=== PATIENT | male | born 1950 | race Caucasian/White ===

== ENCOUNTER 2017-01-03 00:18 | Observation (INO) | payer MEDICARE, OTHER ==
[~2017-01-03] VITALS: Ht 170.2 cm; Wt 94.6 kg
[2017-01-03] VITALS (14 sets, daily range): BP systolic 89–131; BP diastolic 68–88; PULSE 40–76; RESP 11–16; O2SAT 96–100
[~2017-01-03 00:18] MED LIST: AMIO200T PO; AZEL23SP NS; BACL10TA PO; BUPR300T52 PO; ENAL20TA PO; IBUP200C PO; LUBI24CA4 PO; METO50TA7 PO; OXYC5TAB72 PO; OXYM10TA10 PO; PREG300C PO; RIVA20TA PO; SIMV20TA4 PO
[2017-01-03] MEDS ORDERED: Methohexital 10 mg/mL 50 mL Inj IV PRN (09:20)
[2017-01-03] MEDS ORDERED: Methohexital 10 mg/mL 50 mL Inj ONE (10:02)
--- NOTE | 2017-01-03 10:33 | PROCED ---
[address] [address] PROCEDURE NOTE PATIENT: PILAR DODGE : 1950 MR#: [id number] ADMIT: 01/03/2017 JOB ID: [id number] DATE OF SERVICE: 01/03/2017 POSTOPERATIVE DIAGNOSIS(ES): PREOPERATIVE DIAGNOSIS(ES): SURGEON: Esther Kim MD CHIEF COMPLAINT: Shortness of breath and palpitation. PROCEDURE PERFORMED: Direct-current cardioversion. METHOD: Following informed consent, patient was sedated with 30 mg of Brevital and 1 mg of Versed. Then, 200 joules synchronized cardioversion was delivered. Normal sinus rhythm was restored. The patient is bradycardic, but asymptomatic after delivery at a rate of 39 beats per minute. PLAN: Pt is bradycardic. Recommend hospitalization for rate management MTDD
[2017-01-03] MEDS ORDERED: HYDROcodone-APAP 5-325 mg Tablet PO PRN (15:10)
[2017-01-03] MEDS ORDERED: Ondansetron 2 mg/mL 2 mL Inj IVPUSH PRN ×2 (15:10→17:35)
[2017-01-03] MEDS ORDERED: 0.9% Sodium Chloride 1,000 ML IV ONE (15:10)
[2017-01-03] MEDS ORDERED: Alum-Mag Hydrox-Simeth 30 mL Suspension PO PRN (17:35)
[2017-01-03] MEDS ORDERED: Polyethylene Glycol (PEG) 17 Gm Powder PO PRN (17:35)
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
[2017-01-03] MEDS: OXYMORPHONE 10 MG PO SCH (23:30)
[2017-01-04 00:05] VITALS: RESP 14; O2SAT 95
[2017-01-04 03:10] LABS: BASOPHILS % (AUTO) 0.4 % (0-3); EOSINOPHILS % (AUTO) 4.2 % (0-5); MONOCYTES % (AUTO) 11.5 % (4-12); Mean Corpuscular Hemoglobin 30.9 pg (27.0-35.0); Mean Corpuscular Volume 94.4 fL (81-100); NEUTROPHILS % (AUTO) 58.8 % (40-74); Platelet Count 251 bil/L (150-400)
[2017-01-04 03:28] VITALS: BP 98/64; PULSE 45; RESP 16; O2SAT 95
[2017-01-04 04:23] VITALS: RESP 16; O2SAT 95
[2017-01-04] MEDS: OXYMORPHONE 10 MG PO SCH ×3 (06:00→16:11)
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
[2017-01-04 08:03] VITALS: BP 116/72; PULSE 44; RESP 18; O2SAT 97
[2017-01-04] MEDS ORDERED: buPROPion XL 300 mg ER24 Tablet PO SCH (08:30)
[2017-01-04 10:39] VITALS: PULSE 41
--- NOTE | 2017-01-04 10:50 | PCM.PNCARD ---
Subjective Date of service January 04, 2017 Chief Complaint AFIB Constitutional: Denies: Chills, Fever ENT: Denies: Ear Pain Eyes: Denies: Blurred Vision Cardiovascular: Denies: Chest Pain, Irregular Heart Rate, Palpitations Respiratory: Denies: Cough, Cough with bloody sputum Gastrointestinal: Denies: Abdominal Pain, Black tarry stools, Blood in stool ( red) Genitourinary: Denies: Dysuria, Hematuria, No burning or pain with urination Musculoskeletal: Denies: Ankle Pain, Back Pain Skin: Denies: Blisters Neurological: Denies: Confusion, Dizziness Endocrine: Reports: Blood Glucose Review Exam Vital Signs Vital Sign - Last Date Time Temp Pulse Resp B/P Pulse Ox O2 Delivery O2 Flow Rate FiO2 01/04/17 10:39 41 01/04/17 08:03 36.5 18 116/72 97 Room Air Intake and Output 01/03/17 01/03/17 01/04/17 Cumulative From/Thru 15:00 23:00 07:00 01/03/17 09:00 - 01/04/17 05:08 Intake Total 740 ml 800 ml 300 ml 1840 ml Output Total 300 ml 300 ml Balance 740 ml 500 ml 300 ml 1540 ml Intake Oral 240 ml 800 ml 300 ml 1340 ml IV Total 500 ml 500 ml Output Urine Total 300 ml 300 ml # Voids 4 4 # Bowel Movements 0 0 General: Pleasant Cooperative Skin: Warm & dry to touch Neck: No JVD Chest: Clear auscultation w/o rales/wheeze Cardiac: Normal non-displaced apical impulse Regular rhythm Pulses: Pulses full/equal all extremities Abdomen: Soft, non-distended, non-tender Extremities: Warm w/o deformities,erythema noted Neurological: Alert & oriented No gross motor or sensory deficits Psychological: Memory grossly intact Lab and Diagnostics Result Diagram: 01/04/17 0250 01/04/17 0250 Assessment & Plan Problems: (1) Paroxysmal atrial fibrillation Plan: Patient has remained in sinus bradycardia since [facility]. He is feeling better even in the presence of sinus bradycardia. He has hx of symptomatic afib. For now he may go home and f/u with Dr. Kim in [address] Kim's request. Please call our office to make that arrangement. Discharge meds: Amiodarone 100 mg once a day. Lisnopril 5 mg once a day - needs Rx for at least 2 months. Xarelto 20 mg once a day NO metoprolol Status: Chronic ICD Code: I48.0 (2) Bradycardia Status: Acute ICD Code: R00.1 (3) Hypotension Status: Acute ICD Code: I95.9 Pain Evaluation: Adequate Pain Control VTE Prophylaxis: Other (patient is on Xarelto) Resuscitation Status: CPR: Attempt Resuscitation Time spent 20 minutes Arnold Calderon MD January 04, 2017 10:50
[2017-01-04 13:27] VITALS: BP 118/71; PULSE 45; RESP 18; O2SAT 97
--- NOTE | 2017-01-04 16:07 | PCM.DIMED ---
Discharge Instructions Date of Service January 04, 2017 Dates of Hospitalization January 03, 2017 at 13:45 Discharge Diagnosis Discharge Diagnosis Bradycardia and Hypotension Diet Heart Healthy Activity No restrictions (Patient may resume usual activities gradually as tolerated.) Call your provider Fever or Chills, Shortness of breath, Bleeding, Chest pain, Vomitting, Excessive diarrhea, Weakness (unilateral) Patient Instructions Follow-up with PCP in: 1 week (Follow up with Dr. Fran Acosta in 1-2 weeks) Provider: Esther Kim MD Follow-up in: 1 week Lewis Calix MD January 04, 2017 16:07
[2017-01-04] MEDS ORDERED: LISI-571 PO ×2 (16:27→16:34)
[2017-01-04] MEDS ORDERED: RIVA10TA PO (16:33)
[2017-01-04] MEDS ORDERED: AMIO200T PO (16:33)
--- NOTE | 2017-01-04 23:58 | PCM.DC.MED ---
Discharge Summary Date of Service January 04, 2017 Dates of Hospitalization Date of Hospital Admission January 03, 2017 at 13:45 Date of Discharge: January 04, 2017 Providers: Admitting Physician: Esther Kim MD Primary Care Physician: Other,Physician Attending Physician: Esther Kim MD Diagnosis at Time of Discharge Diagnosis at Time of Discharge Bradycardia and Hypotension Consultations Dr. Kim of cardiology Brief History Patient is a very pleasant 66-year-old white male with history of paroxysmal atrial fibrillation diagnosed in approximately 2013. Patient had prior DC cardioversion 03/11/2014 at [facility] with Dr. Kendrick. Patient subsequently had a PVI with Dr. Hoang in August 2014. Before ablation he was placed on amiodarone for approximately 1 month and was a normal sinus rhythm when he went in for ablation. Patient stated that he was kept on amiodarone postprocedure. However, about 1 month afterwards he noted worsening fatigue, and was found to be back in atrial fibrillation. It is not exactly clear when he went back in nature fibrillation. He states despite amiodarone he would feel himself go back into atrial fibrillation when playing competitive, and getting nervous during competitive pool tournaments. She had several EKGs in the past in May 2015 he had this sinus bradycardia, in June 2015 he had sinus bradycardia and in September 2015 in sinus bradycardia. In terms of stroke prevention his chads 2 Vascor was 2 with points for age and hypertension. He was placed on the Xarelto and was tolerating it well. Had a stress test 2013 at [facility] [place] It was a pharmacological stress test with MPI. At that time he was in atrial fibrillation with a controlled rate. There is a small mild basal inferior fixed perfusion defect, which was attributed to attenuation artifact. Gated portion of the study called the ejection fraction of 49% most recent echo performed by Dr. Kim at [facility] 05/27/2016 showed mild LAE, otherwise normal chamber size, normal ejection fraction. Patient also suffers from obstructive sleep apnea and is faithful on CPAP and has a new machine and his sleep is better. Patient was seen by Dr. Kim and was been set up for a DC cardioversion today. After the procedure patient was found to be hypotensive and bradycardic. Patient was therefore brought in under observation to the hospital service for further evaluation and treatment. Hospital Course The patient is a pleasant 66-year-old white male disabled from the previous work -related accident causing a T6 burst fracture of his thoracic spine. Patient has a history of paroxysmal atrial fibrillation. Patient has undergone DC cardioversion in February 2014 and ablation therapy in August 2014. Patient continues to have problem with paroxysmal atrial fibrillation and was brought in for elective cardioversion today by Dr. Kim. Patient was successfully cardioverted to a sinus rhythm however has stayed in sinus bradycardia and has been hypotensive. The patient therefore was brought in under observation to the hospital service for further evaluation and treatment. # Paroxysmal atrial fibrillation present at the time of admission and ongoing. - Status post DC cardioversion today - Sinus bradycardia with the time of admission and an ongoing continue close observation with telemetry - Continue Xarelto # Hypotension - IV fluids - Patient is eating and drinking well and blood pressure is improving - Continue close observation overnight # History of hypertension - Not a problem at this time.- Dr. Kim would like to hold the patient's metoprolol and lisinopril # History of pulmonary emboli after T6 burst fracture - Patient is on Xarelto which we will do for prophylaxis. Physician: Patient has remained stable and asymptomatic overnight with sinus bradycardia discharge home today. Exam Vital Signs (Last) Date Time Temp Pulse Resp B/P Pulse Ox O2 Delivery O2 Flow Rate FiO2 01/04/17 13:27 36.6 45 18 118/71 97 Room Air Exam General: Patient is in no apparent distress and is resting comfortably supine in bed. HEENT: Head is atraumatic and normocephalic. Eyes: Pupils are equally round and reactive to light and accommodation. Extraocular muscles are intact. Sclera are white, anicteric. Subconjunctival mucosa is pink. Ears and nose are unremarkable. Oropharynx: There is no mucosal lesions, there is no thrush, there is no pharyngitis. Neck: Is supple, there are no nodes, or masses or tenderness. Chest: Is clear to auscultation and percussion. There are no rales, rhonchi, wheezes or rubs. Heart: Rate is bradycardic, rhythm is regular. There is no appreciable murmur, rub or gallop. Abdomen: Good bowel sounds are present. Abdomen is soft, nontender, no organomegaly or masses were appreciated. Extremities: Are symmetrical and well perfused. There is no edema, there is no cellulitis, no rash. Neurologic: There are no focal neurological deficits. Cranial nerves II through XII are intact. There are no sensory or motor deficits. Psychiatric: Patients mood is calm and he shows no sign of agitation. Genital: Deferred Rectal: Deferred Test 01/04/17 02:50 White Blood Count 8.2th/mm3 (3.8-10.1) Red Blood Count 4.30mil/mm3 (4.40-5.80) Hemoglobin 13.3g/dL (13.8-17.2) Hematocrit 40.6% (41.0-50.0) Mean Corpuscular Volume 94.4fL (81-100) Mean Corpuscular Hemoglobin 30.9pg (27.0-35.0) Mean Corpuscular Hemoglobin Concent 32.8% (32.0-37.0) Red Cell Distribution Width 13.4% (12.3-15.4) Platelet Count 251bil/L (150-400) Neutrophils (%) (Auto) 58.8% (40-74) Lymphocytes (%) (Auto) 24.7% (14-46) Monocytes (%) (Auto) 11.5% (4-12) Eosinophils (%) (Auto) 4.2% (0-5) Basophils (%) (Auto) 0.4% (0-3) Sodium Level 142mEq/L (134-144) Potassium Level 4.4mEq/L (3.5-5.2) Chloride Level 102mEq/L (97-108) Carbon Dioxide Level 27mmol/L (18-29) Blood Urea Nitrogen 15mg/dL (8-27) Creatinine 0.85mg/dL (0.76-1.27) Estimat Glomerular Filtration Rate 96mL/min (>59) Glucose Level 86mg/dL (60-99) Calcium Level 8.6mg/dL (8.5-10.1) Magnesium Level 2.0mg/dL (1.6-2.6) Total Bilirubin 0.4mg/dL (0.0-1.2) Aspartate Amino Transf (AST/SGOT) 20U/L (0-50) Alanine Aminotransferase (ALT/SGPT) 23U/L (0-44) Alkaline Phosphatase 58U/L (25-160) Total Protein 5.8g/dL (6.4-8.4) Albumin 3.4g/dL (3.4-5.0) Discharge Medications Discharge Medications Amiodarone (Amiodarone) 200 Mg Tablet 200 MG PO DAILY (Reported) Amiodarone (Amiodarone) 200 Mg Tablet 100 MG PO DAILY Prescribed by: PATRICIA CALIX MD Azelastine/Fluticasone (Dymista Nasal [place]) 23 Gm [place].pump 23 GM NS DAILY ( Reported) Baclofen (Baclofen) 10 Mg Tablet 10 MG PO QID (Reported) Bupropion ER (Bupropion ER) 300 Mg Tab.er.24h 300 MG PO DAILY (Reported) Lisinopril (Lisinopril) 5 Mg Tablet 5 MG PO DAILY Prescribed by: PATRICIA CALIX MD Lisinopril (Lisinopril) 5 Mg Tablet 5 MG PO DAILY Prescribed by: PATRICIA CALIX MD Lubiprostone (Amitiza) 24 Mcg Capsule 24 MCG PO BIDWM (Reported) Oxymorphone (Oxymorphone) 10 Mg Tablet 10 MG PO Q6HRS (Reported) Pregabalin (Lyrica) 300 Mg Capsule 300 MG PO BID (Reported) Rivaroxaban (Xarelto) 20 Mg Tablet 20 MG PO QPM (Reported) Rivaroxaban (Xarelto) 10 Mg Tablet 20 MG PO DAILY@17 Prescribed by: PATRICIA CALIX MD Simvastatin (Simvastatin) 20 Mg Tablet 20 MG PO HS (Reported) As needed Ibuprofen (Ibuprofen) 200 Mg Capsule 200 MG PO QID PRN PRN For Pain (Reported) oxyCODONE (oxyCODONE) 5 Mg Tablet 5 MG PO TID PRN PRN For Pain (Reported) Followup Plan Disposition: She is being discharged home. Discharge Diet: Heart Healthy Discharge Activity: No restrictions (Patient may resume usual activities gradually as tolerated.) Follow-up with PCP in: 1 week (Follow up with Dr. Fran Acosta in 1-2 weeks) Provider: Esther Kim MD Follow-up in: 1 week Time spent Time spent on discharging this patient was greater than 35 minutes, over half of which was involved in counseling and coordination of care. Lewis Calix MD January 04, 2017 23:58
== END 2017-01-04 17:40 | disposition home or self-care (01) ==
LOC: SOUO 00:18 → PCC 13:45 → SOUO 13:45
PROVIDERS: ADMIT Internal Medicine; ATTEND Internal Medicine
DX: I48.0 Paroxysmal atrial fibrillation (principal); I95.9 Hypotension, unspecified; I97.89 Other postprocedural complications and disorders of the circulatory system, not elsewhere classified; I10 Essential (primary) hypertension; E78.5 Hyperlipidemia, unspecified; G47.33 Obstructive sleep apnea (adult) (pediatric); G89.4 Chronic pain syndrome; Z79.899 Other long term (current) drug therapy; Z79.01 Long term (current) use of anticoagulants; Z98.890 Other specified postprocedural states; Z86.711 Personal history of pulmonary embolism; Z85.46 Personal history of malignant neoplasm of prostate; Z79.891 Long term (current) use of opiate analgesic; Y84.8 Other medical procedures as the cause of abnormal reaction of the patient, or of later complication, without mention of misadventure at the time of the procedure; Y92.238 Other place in hospital as the place of occurrence of the external cause
CPT/HCPCS: 36415; 80048; 80053; 83735; 85025; 92960; 93005; 94660; 94799; 99152; G0378

== ENCOUNTER 2017-03-15 00:47 | Day surgery (SDC) | payer OTHER ==
[2017-03-15] VITALS (14 sets, daily range): BP systolic 108–143; BP diastolic 72–103; PULSE 43–64; RESP 11–20; O2SAT 95–96
[~2017-03-15] VITALS: Ht 157.5 cm; Wt 93.0 kg
[~2017-03-15 00:47] MED LIST changes: -ENAL20TA PO; -LUBI24CA4 PO; +RIVA10TA PO; -RIVA20TA PO
[2017-03-15] MEDS ORDERED: CeFAZolin Inj 2 GM in IV Premix 1 EACH IV ONE (06:00)
--- NOTE | 2017-03-15 06:00 | NUR ---
ADMISSION NOTE MALE PT ADMITTED FOR PACEMAKER INSERTION. DISCUSSED PLAN OF CARE WITH PT AND . SEE ADMIT AND FLOW SHEET
[2017-03-15] MEDS ORDERED: 0.9% Sodium Chloride 1,000 ML IV SCH ×2 (06:10→09:35)
[2017-03-15 06:44] LABS: BASOPHILS % (AUTO) 0.3 % (0-3); EOSINOPHILS % (AUTO) 4.9 % (0-5); MONOCYTES % (AUTO) 11.8 % (4-12); Mean Corpuscular Volume 90.2 fL (81-100); NEUTROPHILS % (AUTO) 59.9 % (40-74); Platelet Count 258 bil/L (150-400)
[2017-03-15] MEDS ORDERED: FEXO180T85 PO (06:55)
[2017-03-15 06:58] LABS: INR 0.97 ratio
[2017-03-15] MEDS ORDERED: Heparin 10,000 Unit/1,000 mL NS Premix IV ONE (07:59)
[2017-03-15] MEDS ORDERED: fentaNYL-PF 50 mCg/mL 2 mL Inj ONE (08:00)
[2017-03-15] MEDS ORDERED: 0.9% Sodium Chloride 250 ML ONE (08:05)
[2017-03-15] MEDS ORDERED: Bupivacaine-MPF 0.5% 30 mL Inj ONE (08:15)
[2017-03-15] MEDS ORDERED: Ondansetron 2 mg/mL 2 mL Inj IVPUSH PRN (09:35)
[2017-03-15] MEDS ORDERED: HYDROcodone-APAP 5-325 mg Tablet PO PRN (09:35)
--- NOTE | 2017-03-15 09:55 | NUR ---
POST PROCEDURE NOTE RETURNED FROM [employer]. SEE FLOW SHEET
--- NOTE | 2017-03-15 10:24 | OP ---
[address] [address] OPERATIVE REPORT PATIENT: PILAR DODGE : 1950 MR#: [id number] ADMIT: 03/15/2017 JOB ID: [id number] DATE OF SURGERY: 03/15/2017 PREOPERATIVE DIAGNOSIS(ES): Sick sinus syndrome. POSTOPERATIVE DIAGNOSIS(ES): Sick sinus syndrome. PROCEDURES PERFORMED: 1. Dual-chamber pacemaker implantation. 2. Fluoroscopy. SURGEON: Avery Fraga M.D., electrophysiology attending. FILL PLANT OPERATOR: Aliyah Whitney. IMPLANTED DEVICE: 1. [employer] pulse generator model PM 2272, serial #[id number]. 2. Right atrial lead [employer], LP 1200, 52 cm, serial #[id number]. 3. RV lead [employer], LPA 1200, 58 cm, serial #[id number]. ANESTHESIA: Bolus dosing of Versed and fentanyl utilized to reach an appropriate level of sedation. INDICATION: The patient is a pleasant 66-year-old man with paroxysmal atrial fibrillation, previous ablation and now sick sinus syndrome. After discussion of the risks and benefits of pacemaker implantation, he opted to proceed. PROCEDURAL DESCRIPTION: Following informed consent, the patient was taken to the EP laboratory in a fasting, nonsedated state where he was prepped and draped in the usual sterile fashion. The left infraclavicular region was infiltrated with 40 cc of a 50/50 mixture of bupivacaine and lidocaine. Once adequate anesthesia had been achieved, a 3 cm transverse incision was performed 2 cm below the left clavicle. Dissection was carried down to the pectoralis fascia and a pocket was then fashioned using a combination of electrocautery and blunt dissection. Once adequate hemostasis had been achieved, access to the left axillary vein was gotten with a micropuncture needle over the first rib twice to deploy two 0.035, 3 mm J guidewires. Over the first of these, an 8-Vietnamese tear-away sheath was advanced. Once the guidewire was removed, an active fixation was advanced to the RV outflow tract and ultimately to the RV apex. The lead was affixed in position using associated active fixation screw. It was connected to the external analyzer and demonstrated appropriately sensed R waves, impedance, capture threshold. We checked to 10 V and there was no evidence of diaphragmatic stimulation. Attention was now paid to the right atrial lead. Over the other previously deployed J guidewire, another 8-Vietnamese tear-away sheath was advanced. Once the guidewire was removed, an active fixation was advanced to the right atrial appendage. It was affixed in position using associated fixation screw. The lead was connected to the external analyzer and demonstrated appropriately sensed P waves, impedence, capture and threshold. It was checked to 10 V and there was no evidence of diaphragmatic stimulation. Once the position and redundancy of both leads had been confirmed in multiple views, the leads were anchored to the prepectoralis fascia using associated anchoring sleeve and two Ethibond sutures. The pocket was then copiously irrigated with antibiotic solution. The leads were connected to a generator. Generator was placed into the generator pocket and was successful using 1-0 Ti-Cron suture. The incision was then closed with running layers of absorbable suture. The wound was dressed with skin adhesive and a small dressing. At the end of procedure, the needle, sponge, and instrument counts were all correct. COMPLICATIONS: None. ESTIMATED BLOOD LOSS: Negligible. DEVICE MEASURED DATA: 1. Right atrial lead 3.5 mV, 540 ohms, 0.75 V at 0.4 msec. 2. RV lead 8.8 mV, 680 ohms, 0.5 V at 0.4 msec. FINAL PARAMETERS: DDDR 60-130 beats per minute with VIP on. IMPRESSION: Successful dual-chamber pacemaker implantation. PLAN: 1. Stat portable chest x-ray. 2. PA and lateral chest x-ray in 4-5 hours. 3. Discharge later today. 4. Device interrogation remotely in the morning. 5. Pacemaker Clinic in one week. 6. Followup with Kaden Rhodes in six weeks. ATTENDING STATEMENT: Avery Fraga M.D., electrophysiology attending, was present for and supervised/performed all aspects of this procedure.
--- NOTE | 2017-03-15 12:31 | DRSVH ---
PROCEDURE: X-RAY CHEST ONE VIEW, PORTABLE ([id number]) INDICATIONS: For new leads placed TECHNIQUE: One view of the chest was acquired. COMPARISON: None. FINDINGS: Surgical changes and devices: There is a left chest wall dual-lead pacemaker with the leads projectin g over the right atrium and right ventricle. Lungs and pleura: No pleural effusions or pneumothorax. There are a few linear bibasilar opacities suggestive of atelectasis. Mediastinum: Mediastinal contours appear normal. Heart size is normal. Bones and chest wall: No suspicious bony lesions. Overlying soft tissues appear unremarkable. IMPRESSION: 1. No evidence of pneumothorax. Dictated by: Faisal Iraheta M.D. on 03/15/2017 at 12:29 Approved by: Faisal Iraheta M.D. on 03/15/2017 at 12:30
--- NOTE | 2017-03-15 16:14 | NUR ---
DISCHARGE NOTE UP IN ROOM, TOLERATED WELL. NO COMPLAINTS. INSTRUCTIONS GIVEN. HOME WITH
--- NOTE | 2017-03-15 16:40 | DRSVH ---
PROCEDURE: X-RAY CHEST, TWO VIEWS ([id number]) INDICATIONS: For new lead placement TECHNIQUE: 2 views of the chest were acquired. COMPARISON: [facility], CR, XR CHEST 1VW (PORTABLE), 03/15/2017, 9:53. FINDINGS: Surgical changes and devices: Left-sided pacer. Lungs and pleura: No pleural effusions or pneumothorax. Lungs are clear. Mediastinum: Mediastinal contours are normal. Heart size is normal. Bones and chest wall: No suspicious bony abnormalities. Soft tissues appear unremarkable. IMPRESSION: No acute process. Dictated by: Ludin Dixon M.D. on 03/15/2017 at 16:38 Approved by: Ludin Dixon M.D. on 03/15/2017 at 16:38
== END 2017-03-15 23:59 | disposition home or self-care (01) ==
LOC: SOUO 00:47
PROVIDERS: ATTEND Internal Medicine Cardiovascular Disease
DX: I49.5 Sick sinus syndrome (principal); I48.0 Paroxysmal atrial fibrillation; Z98.890 Other specified postprocedural states; Z79.01 Long term (current) use of anticoagulants; Z79.899 Other long term (current) drug therapy
CPT/HCPCS: 33208; 36415; 71010; 71020; 80048; 85025; 85610; 93005; 99152; 99153; C1769; C1785; C1892; C1898; J0131; J0690; J1644; J2250; J3010; J7050